=== PATIENT | female | born 1995 | race Hispanic/Latino ===

== ENCOUNTER 2021-08-07 07:22 | Day surgery (SDC) | payer OTHER ==
[2021-08-07] MEDS ORDERED: Lidocaine 1% MPF 2 ML VIAL ONE (08:44)
[2021-08-07] MEDS ORDERED: oFLOXacin 0.3% Opth 5 ML BOT ONE (09:27)
[2021-08-07] MEDS ORDERED: Midazolam HCl 2 mg/2 ml Vial ONE (09:37)
[2021-08-07] MEDS ORDERED: PROPOFOL 20 ML ONE (09:37)
[2021-08-07] MEDS ORDERED: Dexamethasone 20 MG/5 ML VIAL ONE (09:38)
[2021-08-07] MEDS ORDERED: Ondansetron PF 4 MG/2 ML Vial ONE (09:38)
[2021-08-07] MEDS ORDERED: Lidocaine 1% PF 5 ML VIAL ONE (09:38)
== END 2021-08-07 10:50 | disposition home or self-care (01) ==
LOC: CSHSDC 07:22
PROVIDERS: ATTEND Otolaryngology Plastic Surgery within the Head & Neck
PROC: 099570Z Drainage of Right Middle Ear with Drainage Device, Via Natural or Artificial Opening (ICD-10-PCS; principal; 2021-08-07)
PROC: 099670Z Drainage of Left Middle Ear with Drainage Device, Via Natural or Artificial Opening (ICD-10-PCS; principal; 2021-08-07)
DX: H65.23 Chronic serous otitis media, bilateral (principal); H69.82 Other specified disorders of Eustachian tube, left ear; Z79.899 Other long term (current) drug therapy; G47.33 Obstructive sleep apnea (adult) (pediatric); I25.10 Atherosclerotic heart disease of native coronary artery without angina pectoris; Q90.9 Down syndrome, unspecified; Q33.6 Congenital hypoplasia and dysplasia of lung
CPT/HCPCS: J1100; J2250; J2405; J2704

== ENCOUNTER 2024-03-05 08:53 | Day surgery (SDC) | payer OTHER ==
[2024-03-02 11:52] VITALS: BMI 20.7
[2024-03-05 10:56] LABS: Hematocrit 42.1 % (34.9-44.5)
[2024-03-05 11:06] LABS: BHCG - Serum Negative (NEGATIVE); Pregs Control Background? CLEAR/WHITE (CLR/WHITE); Pregs Control Bar Appear? YES (CONTROL BAR)
[2024-03-05] MEDS ORDERED: oFLOXacin 0.3% Opth 5 ML BOT ONE (11:31)
[2024-03-05] MEDS ORDERED: PROPOFOL 20 ML ONE (12:40)
== END 2024-03-05 14:30 | disposition home or self-care (01) ==
LOC: CSHSDC 08:53
PROVIDERS: ATTEND Otolaryngology Plastic Surgery within the Head & Neck
PROC: 09Q87ZZ Repair Left Tympanic Membrane, Via Natural or Artificial Opening (ICD-10-PCS; principal; 2024-03-05)
DX: T85.698A Other mechanical complication of other specified internal prosthetic devices, implants and grafts, initial encounter (principal); H72.92 Unspecified perforation of tympanic membrane, left ear; J45.909 Unspecified asthma, uncomplicated; Z91.02 Food additives allergy status; Y78.2 Prosthetic and other implants, materials and accessory radiological devices associated with adverse incidents
CPT/HCPCS: 84703; 85014; J2704